=== PATIENT | female | born 1950 | race Caucasian/White ===

== ENCOUNTER → 2021-08-08 | Outpatient (CLI) | payer BC ==
[~2021-08-08] MED LIST: IOHEXOL 180 MG/ML 10 ML VIAL. IT ONE; LIDOCAINE 1% Multi-Dose 20 ML VIAL. ID ONE
--- NOTE | 2021-08-08 14:54 | KCIC ---
Study: XR MYELOGRAM LUMBAR Indication: Lower back pain. Comparison: None. Findings: Fluoroscopy time: 0:36 minutes Fluoroscopic images: 2 The patient was informed of the risks of the procedure. All questions were answered. Patient signed a written consent form for the myelogram. The patient was placed in the prone position on the fluoroscopy table. External site of the lower carli k was prepped and draped in the usual sterile fashion. Betadine was utilized for cleansing solution a nd 1% lidocaine for local anesthesia. A 22-gauge spinal needle was advanced to the L3-L4 level upon which there was return of clear CSF. A pproximately 10 cc of Omnipaque 180 was then injected during fluoroscopic visualization. The needle was removed and there were no immediate post procedure complication. Dorsal decompression and posterior instrumented fusion at L5-S1. There was no obstruction to the flow of intrathecal contrast. No wasting of the thecal sac. Degenerative changes and hardware integrity w ill be fully described in detail on the forthcoming CT Impression: Technically successful intrathecal administration of iodinated contrast for the purposes of CT myelog delmer. Electronically signed by: DEXTER ROMERO MD (08/08/2021 2:52 PM) [id number]
--- NOTE | 2021-08-08 15:08 | KCIC ---
STUDY: CT lumbar spine with contrast - myelogram INDICATION: Low back pain. Prior lumbar surgery. COMPARISON: None. TECHNIQUE: After the intrathecal administration of contrast, CT imaging of the lumbar spine with obta inment of coronal and sagittal reformats. The injection portion of the procedure is detailed separate ly. One or more of the following individualized dose reduction techniques were utilized for this examinat ion: 1. Automated exposure control 2. Adjustment of the mA and/or kV according to patient size 3. Use of iterative reconstruction technique. FINDINGS: Normal configuration of the conus medullaris which terminates at L1-L2. Normal distribution of the ca uda equina. Dorsal decompression and posterior instrumented fusion at L5-S1. The hardware is intact and well fixa bc. Well-positioned pedicle screws. Solid osseous bridging across the dorsolateral fusion mass. Minimal lumbar levocurvature. Moderate disc space height loss at L5-S1. Osseous bridging across the p osterior/left lateral margin of the L5-S1 disc space. Grade 1 anterolisthesis of L5 on S1. Mild disc space height loss eccentric to the right L4-L5. Intradiscal mineralization at T12-L1. Vertebral body height is maintained. No fracture or focally aggressive osseous abnormality. Intact posterior element s. Either a chronic fracture at the tip of the right L2 transverse process or a developmentally ununi bc apophysis. Aortobiiliac calcific atherosclerosis. Mild arthrosis at the sacroiliac joints. No paravertebral or d orsal paraspinous fluid collection or relevant edema. T12-L1: Mild right more so than left facet arthrosis. No significant disc bulge. Patent central canal and neural foramina. L1-L2: Annular/posterior longitudinal ligament mineralization. Minimal facet arthrosis. Patent centra l canal and neural foramina. L2-L3: No significant facet arthrosis, ligamentum flavum hypertrophy or disc bulge. Patent central ca nal and neural foramina. L3-L4: Trace disc bulge. No significant facet arthrosis. Mild ligamentum flavum hypertrophy. Patent c entral canal and neural foramina. L4-L5: Minimal facet arthrosis. Mild disc bulge. Ligamentum flavum hypertrophy. Patent central canal and right neural foramen. Minimal neural foraminal narrowing on the left. L5-S1: Operative level. Endplate osteophytic ridging in addition to bony bridging across the posterio r/left lateral margin of the disc space. Fused facet joints. Decompressed central canal is widely pat ent. The lateral recesses are patent. Moderate osseous neural foraminal stenosis on the left and mild on the right. IMPRESSION: 1. Intact and well fixated L5-S1 dorsal fusion construct. No acute or aggressive osseous abnormality. 2. Only mild degenerative changes above the operative level with patency of the central canal and miladys ral foramina. 3. Decompressed and widely patent central canal at L5-S1. Moderate osseous neural foraminal stenosis on the left at this level mainly due to bridging bone across the posterior/left lateral margin of the disc space (image 11 series [id number]). Mild osseous neural foraminal stenosis on the right secondary to a combination of endplate osteophytic ridging and grade 1 anterolisthesis. Electronically signed by: DEXTER ROMERO MD (08/08/2021 3:06 PM) [id number]
== END | disposition home or self-care (01) ==
LOC: KCIC 08:09
DX: M47.816 Spondylosis without myelopathy or radiculopathy, lumbar region (principal); M48.061 Spinal stenosis, lumbar region without neurogenic claudication
CPT/HCPCS: 62304; 72132; J3490; Q9965